=== PATIENT | male | born 1955 | race Caucasian/White ===

== ENCOUNTER 2023-05-13 06:32 | Outpatient (CLI) | payer MEDICARE, SELFPAY ==
--- NOTE | ~2023-05-13 | CT_ITS ---
EXAMINATION: CT abdomen pelvis wo/w con DATE: 05/13/2023 07:34 INDICATION: Gross hematuria TECHNIQUE: Computed tomography (CT) of the abdomen and pelvis was performed without intravenous contr ast. CT of the abdomen and pelvis was then performed with a total of 130 mL Omnipaque 350 intravenous contrast using a double-bolus technique for simultaneous opacification of the renal parenchyma and r enal collecting system. The dose-length product (DLP) was 2724.48 mGy-cm. Automated exposure control and iterative reconstruction technique were employed. COMPARISON: None FINDINGS: Minimal dependent atelectasis is present in the lung bases. The heart size is normal. The l iver, pancreas, gallbladder, and adrenal glands are normal. There is a 2.1 cm hypoattenuating lesion of the spleen. No stones are identified in the kidneys, ureters, or bladder. No hydronephrosis or hyd roureter. Simple cysts of the kidneys measure up to 9.1 cm on the right. No suspicious renal or uroth elial lesion identified. The left ureter is not opacified throughout much of its course however no mata spicious etiology is seen. No pathologically enlarged abdominal or pelvic lymph nodes are identified. No free intraperitoneal gas or evidence of bowel obstruction. There is advanced osteoarthritis of th e hips, worse on the right than left. There is moderate lumbar spondylosis. There is an umbilical her saurabh containing fat. IMPRESSION: 1. No CT correlate for the patient's symptoms. 2. Indeterminate splenic lesion. Further evaluation by MRI without and with contrast is recommended. Reviewed, dictated and finalized at location B. [facility] IMPRESSION: 1. No CT correlate for the patient's symptoms. 2. Indeterminate splenic lesion. Further evaluation by MRI without and with con trast is recommended.
[2023-05-13 07:04] LABS: Estimated Glomerular Filt Rate > 60
== END 2023-05-13 06:33 | disposition home or self-care (01) ==
PROVIDERS: PCP Internal Medicine; Visit Provider Urology
DX: R31.0 Gross hematuria (principal)
CPT/HCPCS: 74178; Q9967